=== PATIENT | female | born 1970 | race Caucasian/White ===

== ENCOUNTER 2017-12-23 13:07 | Emergency (ER) | payer OTHER ==
[~2017-12-23] VITALS: Ht 177.8 cm; Wt 91.6 kg
[~2017-12-23 13:07] MED LIST: ALBUTEROL INH PO; ALBUTEROL INHAL17 GM IH; AMBIEN 10 MG TA10 MG PO; APAP500; AUGMENTIN 875875 MG PO; AVELOX 400 MG400 MG PO; AVELOX400 MG PO; CALCIUM 500 +1 EAC4 PO; CEFDINIR300 MG PO; CYCLOBENZAPRINE; CYCLOBENZAPRINE5 MG PO; DARVOCET-N 1001 EACH PO; DEPAKOTE; DEPAKOTE ER500 MG PO; DESYREL; DESYREL100 MG PO; FISH OIL 1,001000 M2 PO; FLEXERIL PO; FLONASE 0.05%50 MCG NASAL; GEODON PO; IBUPROFEN 800800 M1 PO; LAMOTRIGINE100 MG PO; LEVOTHROID PO; LEVOTHYROXIN0.125 M1 PO; LEVOTHYROXIN0.137 M1 PO; MACROBID 100 M100 M1 PO; MINOCYCLINE HC100 M2 PO; MUPIROCIN22 GM TOP; NAPROSYN500 MG PO; NEURONTIN 300300 M1 PO; NICOTINE TRANSD14 M1 TD; NICOTINE TRANSD21 M1 TD; NORCO 5-325 TA1 EACH PO; PEPCID40 MG PO; PERCOCET 5-3251 EACH PO; PREDNISONE; PREDNISONE 10 M10 M1 PO; PREDNISONE 10 M10 MG PO; PREDNISONE 20 M20 MG PO; PROTONIX40 MG PO; PSEUDOEPHEDRINE; REQUIP 1 MG TABL1 M1 PO; REQUIP PO; SEROQUEL; SERTRALINE HCL100 MG PO; TESSALON200 MG PO; TRAMADOL 50 MG50 MG PO; TRAZODONE HCL100 MG PO; ULTRAM 50MG TAB50 MG PO; VALIUM2 MG PO; WOMEN'S BIOMUL1 EAC1 PO; ZITHROMAX PO; ZOFRAN ODT4 MG PO; ZOLOFT
[2017-12-23 13:56] LABS: URINE BILIRUBIN NEGATIVE (Negative); URINE BLOOD NEGATIVE (Negative); URINE CLARITY CLOUDY; URINE COLOR YELLOW; URINE GLUCOSE-RANDOM* NEGATIVE (Negative); URINE KETONES NEGATIVE (Negative); URINE LEUKOCYTES-REFLEX NEGATIVE (Negative); URINE NITRITE-REFLEX NEGATIVE (Negative); URINE PROTEIN (DIPSTICK) NEGATIVE (Negative); URINE SPECIFIC GRAVITY >= 1.030 (1.005-1.035); URINE UROBILINOGEN 0.2 E.U./dl (0.2-1.0)
[2017-12-23 14:07] LABS: AMP/METHAMP Negative (Negative); BARBITURATES Negative (Negative); BENZODIAZEPINES Negative (Negative); COCAINE Negative (Negative); METHADONE Negative (Negative); OPIATES Negative (Negative); PCP Negative (Negative)
[2017-12-23 14:08] LABS: ABSOLUTE NEUTROPHILS 4.2 thou/uL (1.4-8.2); BASOPHILS 0.5 % (0.0-2.0); EOSINOPHILS 3.7 % (0.0-3.0); HEMATOCRIT 45.5 % (37.0-47.0); HEMOGLOBIN 16.1 gm/dL (12.0-15.0); LYMPHOCYTES 35.2 % (24.0-44.0); MCH 35.7 pg (26.0-34.0); MCHC 35.4 g/dL (28.0-37.0); MCV 100.8 fL (80.0-100.0); MONOCYTES 5.5 % (1.0-8.0); PLATELET COUNT 228 thou/uL (150-400); POLYS 55.1 % (36.0-66.0); RBC 4.52 mil/uL (4.20-5.00); RDW 13.1 % (10.5-14.5); WBC 7.5 thou/uL (4.0-11.0)
[2017-12-23 14:11] LABS: CALCIUM 8.9 mg/dL (8.5-10.1); CREATININE 0.8 mg/dL (0.6-1.0); POTASSIUM 3.8 mmol/L (3.5-5.1)
[2017-12-23] MEDS ORDERED: LEVAQUIN 500 M500 M3 PO (15:42)
[2017-12-23] MEDS ORDERED: NAPROSYN500 MG PO (15:42)
[2017-12-23] MEDS ORDERED: ULTRAM 50MG TAB50 MG PO (15:42)
[2017-12-23 16:09] VITALS: BP 97/46
== END 2017-12-23 16:33 | disposition home or self-care (01) ==
LOC: ER 13:07
PROVIDERS: Emergency Medicine
DX: J32.9 Chronic sinusitis, unspecified (principal); F17.210 Nicotine dependence, cigarettes, uncomplicated; J44.9 Chronic obstructive pulmonary disease, unspecified; E03.9 Hypothyroidism, unspecified; Z88.8 Allergy status to other drugs, medicaments and biological substances; Z88.0 Allergy status to penicillin; Z88.2 Allergy status to sulfonamides; Z88.5 Allergy status to narcotic agent; Z90.49 Acquired absence of other specified parts of digestive tract; Z90.710 Acquired absence of both cervix and uterus